=== PATIENT | female | born 1985 | race Caucasian/White ===

== ENCOUNTER 2019-02-21 08:11 | Emergency (ER) | payer BC ==
[~2019-02-21] VITALS: Ht 170.2 cm; Wt 126.4 kg
[2019-02-21] MEDS ORDERED: ZANTTAB PO (08:20)
[2019-02-21] MEDS ORDERED: SPIR50TA4 PO (08:20)
[2019-02-21] MEDS ORDERED: METF750T PO (08:20)
[2019-02-21] MEDS ORDERED: FLUO20CA19 PO (08:20)
[2019-02-21] MEDS ORDERED: GI COCKTAIL 50ML BTL(HYOSCYAMINE/MAALOX/LIDOCAINE VISCOUS)(1:3:1) PO ONE (08:45)
[2019-02-21] MEDS ORDERED: PANTOPRAZOLE 40MG INJ (PROTONIX) (C9113) IV ONE (08:45)
[2019-02-21 08:51] LABS: BASO # 0.1 10^3/uL (0.0-0.2); BASO % 0.6 % (0.0-1.0); EOS # 0.1 10^3/uL (0.0-0.50); EOS % 1.1 % (0.0-3.0); HEMATOCRIT 43.6 % (36.0-47.0); HEMOGLOBIN 14.8 g/dl (12.0-15.5); LYMPH # 2.6 10^3/uL (1.5-4.5); LYMPH % 24.3 % (24.0-44.0); MEAN CORPUSCULAR HEMOGLOBIN 29.4 pg (27.0-33.0); MEAN CORPUSCULAR HGB CONC 33.9 g/dl (32.0-36.5); MEAN CORPUSCULAR VOLUME 86.5 fl (80.0-96.0); MONO # 0.7 10^3/uL (0.0-0.8); MONO % 6.2 % (0.0-5.0); NEUTROPHILS # 7.1 10^3/uL (1.8-7.7); NEUTROPHILS % 67.3 % (36.0-66.0); PLATELET COUNT, AUTOMATED 330 10^3/uL (150-450); RED BLOOD COUNT 5.04 10^6/uL (4.00-5.40); WHITE BLOOD COUNT 10.6 10^3/uL (4.0-10.0)
[2019-02-21 09:16] LABS: ALBUMIN 3.8 GM/DL (3.2-5.2); ALT/SGPT 33 U/L (12-78); BILIRUBIN,DIRECT < 0.1 MG/DL (0.0-0.2); BILIRUBIN,TOTAL 0.2 MG/DL (0.2-1.0); BLOOD UREA NITROGEN 17 MG/DL (7-18); CALCIUM LEVEL 9.1 MG/DL (8.5-10.1); CARBON DIOXIDE LEVEL 25 MEQ/L (21-32); CHLORIDE LEVEL 110 MEQ/L (98-107); CREATININE FOR GFR 0.91 MG/DL (0.55-1.30); GLOMERULAR FILTRATION RATE > 60.0 (>60); GLUCOSE, FASTING 96 MG/DL (70-100); LIPASE 107 U/L (73-393); POTASSIUM SERUM 3.9 MEQ/L (3.5-5.1); SODIUM LEVEL 141 MEQ/L (136-145); TOTAL PROTEIN 7.8 GM/DL (6.4-8.2)
[2019-02-21] MEDS ORDERED: KETOROLAC 30 MG/ML VIAL (J1885) IV ONE (09:30)
--- NOTE | 2019-02-21 09:30 | REP ---
Clinical: Epigastric pain. Technique: Real time holt scale ultrasound examination using curved array transducer. Findings: Liver is increased echogenicity suggesting fatty infiltration without focal hepatic lesion identified. The pancreas is incompletely evaluated due to interposed bowel gas but visualized portions appear normal. Gallbladder demonstrates multiple stones and mild wall thickening to 3.8 mm but without pericholecystic fluid or sonographic Whitehead's sign. No biliary ductal dilatation is appreciated and the common bile duct measures 4.4 mm diameter. The right kidney is normal in reniform shape without hydronephrosis and measures 11.9 x 5.5 x 4.5 cm. No ascites in the visualized right upper quadrant. Impression: 1. Cholelithiasis without sonographic evidence to suggest acute cholecystitis. 2. Hepatic steatosis. Electronically Signed by Sylvester Prieto MD 02/21/2019 09:20 A
[2019-02-21 11:45] VITALS: BP 120/68
[2019-02-21] MEDS ORDERED: SUCR1TA PO (11:46)
[2019-02-21] MEDS ORDERED: PROT1TAB2 PO (11:46)
--- NOTE | 2019-02-21 22:05 | ECGEPIP ---
Stationary ECG Study [facility] - ED Test Date: 2019-02-21 Pat Name: SPEEDY MONROY Department: Room: - Gender: F Supervisor Receiving And Processing: TC : 1985 Requested By: OTILIA XIAO Order Number: [id number] Reading MD: Kolton Wilson Measurements Intervals [place] Rate: 65 P: -1 GA: 146 QRS: 11 QRSD: 113 T: 12 QT: 414 QTc: 431 Interpretive Statements SINUS RHYTHM MODERATE INTRAVENTRICULAR CONDUCTION DELAY NSTTW ABNORMALITIES NO PRIORS FOR COMPARISON Electronically Signed On 02-21-2019 22:05:18 EDT by Kolton Wilson
== END 2019-02-21 11:56 | disposition home or self-care (01) ==
LOC: M ED 08:11
DX: R10.13 Epigastric pain (principal); K80.20 Calculus of gallbladder without cholecystitis without obstruction; K76.0 Fatty (change of) liver, not elsewhere classified; R11.0 Nausea; E28.2 Polycystic ovarian syndrome; Z79.899 Other long term (current) drug therapy; Z79.84 Long term (current) use of oral hypoglycemic drugs; Z88.8 Allergy status to other drugs, medicaments and biological substances
CPT/HCPCS: 76705; 80048; 80076; 83690; 84702; 85025; 93005; 93041; 96374; 96375; 99285; C9113; J1885

== ENCOUNTER 2019-03-10 12:12 | Day surgery (SDC) | payer BC ==
[~2019-03-10] VITALS: Ht 170.2 cm; Wt 126.1 kg
[~2019-03-10 12:12] MED LIST: FLUO20CA19 PO; METF750T PO; NS 1,000 ML IV ONE; PROT1TAB2 PO; SPIR50TA4 PO; SUCR1TA PO; ZANTTAB PO
[2019-03-10] MEDS ORDERED: LIDOCAINE 2% INJ 100 MG/5 ML SDV (FOR ANES.) As Ordered ONE (13:55)
[2019-03-10] MEDS ORDERED: PROPOFOL 200 MG/20 ML VIAL As Ordered ONE (13:55)
--- NOTE | 2019-03-10 14:18 | ROOR ---
Patient Name: Mala Juares Procedure Date: 03/10/2019 2:04 PM Date of : 1985 Age: 33 Room: [facility] Gender: Female Note Status: Finalized Procedure: Upper GI endoscopy Indications: Suspected esophageal reflux Providers: Cedrick Anton Jr, MD Referring MD: Jesenia SUNSHINE DO Requesting Provider: Medicines: Propofol per Anesthesia Complications: No immediate complications. Procedure: Pre-Anesthesia Assessment: - Prior to the procedure, a History and Physical was performed, and patient medications and allergies were reviewed. The patient is competent. The risks and benefits of the procedure and the sedation options and risks were discussed with the patient. All questions were answered and informed consent was obtained. Patient identification and proposed procedure were verified by the physician and the nurse in the pre-procedure area and in the procedure room. Mental Status Examination: alert and oriented. Airway Examination: normal oropharyngeal airway and neck mobility. Respiratory Examination: clear to auscultation. CV Examination: normal. ASA Grade Assessment: II - A patient with mild systemic disease. After reviewing the risks and benefits, the patient was deemed in satisfactory condition to undergo the procedure. The anesthesia plan was to use moderate sedation / analgesia (conscious sedation). Immediately prior to administration of medications, the patient was re-assessed for adequacy to receive sedatives. The heart rate, respiratory rate, oxygen saturations, blood pressure, adequacy of pulmonary ventilation, and response to care were monitored throughout the procedure. The physical status of the patient was re-assessed after the procedure. The Endoscope was introduced through the mouth, and advanced to the second part of duodenum. The upper GI endoscopy was accomplished without difficulty. The patient tolerated the procedure well. Findings: The upper third of the esophagus, middle third of the esophagus and lower third of the esophagus were normal. Non-severe esophagitis was found at the gastroesophageal junction. The cardia, gastric fundus, gastric body, gastric antrum, prepyloric region of the stomach and pylorus were normal. A small hiatal hernia was present. The duodenal bulb, first portion of the duodenum and second portion of the duodenum were normal. Impression: - Normal upper third of esophagus, middle third of esophagus and lower third of esophagus. - Non-severe reflux esophagitis. - Normal cardia, gastric fundus, gastric body, antrum, prepyloric region of the stomach and pylorus. - Small hiatal hernia. - Normal duodenal bulb, first portion of the duodenum and second portion of the duodenum. - No specimens collected. Recommendation: - Discharge patient to home (ambulatory). - Return to my office in 2 weeks. Cedrick Anton MD Cedrick Anton Jr, MD 03/10/2019 2:17:33 PM Electronically signed by Cedrick Anton Jr, MD Number of Addenda: 0 Note Initiated On: 03/10/2019 2:04 PM Estimated Blood Loss: Estimated blood loss: none.
[2019-03-10 14:40] VITALS: BP 115/56
== END 2019-03-10 14:49 | disposition home or self-care (01) ==
LOC: M OPP 12:12
PROVIDERS: ATTEND Surgery
DX: K21.0 Gastro-esophageal reflux disease with esophagitis (principal); K44.9 Diaphragmatic hernia without obstruction or gangrene